=== PATIENT | female | born 1935 | race Caucasian/White ===

== ENCOUNTER 2016-07-03 10:03 | Inpatient (IN) | payer OTHER ==
[~2016-07-03] VITALS: Ht 154.9 cm; Wt 50.8 kg
--- NOTE | ~2016-07-03 | EKG ---
[place] [address] [facility] [place] [address] ELECTROCARDIOGRAM REPORT Name: EULALIA WILDER Room #: REG [facility]#: [id number] Admission: 07/03/16 Attend Phys: Discharge: Date of : 31 Report #: [id number] THIS REPORT FOR: //name// [facility] ED Test Date: 2016-07-03 Test Time: 10:04:01 Pat Name: EULALIA WILDER Department: Room: Gender: F Maintenance Services Dispatcher: KWABENA : 1935 Requested By: Doreen May Order Number: [id number] MD: Ubaldo Austin Measurements Intervals [place] Rate: 49 P: 48 TN: 161 QRS: 78 QRSD: 111 T: 37 QT: 487 QTc: 440 Interpretive Statements Sinus bradycardia Borderline low voltage, extremity leads No previous ECG available for comparison Electronically Signed On 07-03-2016 11:13:44 TEST FIXTURE DESIGNER by Ubaldo Asutin [email or web address] <ELECTRONICALLY SIGNED> By: Ubaldo Austin MD 07/03/16 1113 1004 1004 Ubaldo Austin MD /TRA
--- NOTE | ~2016-07-03 | S ---
[facility] [place] [address] SURGICAL PATH RPT PROCEDURE Name: SUMMER JONES Room #: 434-P DIS IN M.R.#: [id number] Admission: 07/03/16 Date of : 31 Discharge: 07/06/16 Report #: [id number] Path Case #: [id number] PATHOLOGY REPORT COLLECTION DATE: 07/05/2016 RECEIVED DATE: 07/05/2016 SUBMITTING PHYS: Dr. Pauline Carcamo OTHER PHYS: Dr. Herbie Allen SPECIMEN(S) RECEIVED: A.Bx gastritis B.Bx polyp pyloric channel C.Bx ileum D.Bx ascending colon E.Bx ulcerated sigmoid from 16 cm - 23 cm * * * * * * * * * * * * FINAL DIAGNOSIS: A. Gastric biopsy "biopsy gastritis": - Mild chronic reactive gastropathy. - The immunoperoxidase stain for Helicobacter pylori is negative. B. Small intestinal mucosa "biopsy polyp pyloric channel": - Peptic duodenitis with reactive changes. - There is no evidence of adenomatous change, high grade dysplasia or malignancy. C. Small intestinal mucosa "biopsy ileum": - No diagnostic changes. - There is no evidence of acute cryptitis, granuloma, adenomatous change or malignancy. D. Colonic mucosa "biopsy ascending colon": - No diagnostic changes. - There is no evidence of acute cryptitis, granulomas, adenomatous change or malignancy. E. Colonic mucosa "biopsy ulcerated sigmoid from 16 cm to 23 cm":- Acute mucosal ulceration with necrotic acute inflammatory exudate with small miniature glands surrounded by hyalinized stroma consistent with ischemic colitis with ulceration. COMMENT: Part B and E of this case is also reviewed by Dr. Damaris Guerin. (SHA:all; d/t: 07/06/2016) PATHOLOGIST: Jhon Flood M.D. REPORT ELECTRONICALLY SIGNED BY: Jhon Flood M.D. DATE/TIME: 07/06/2016 14:[address] [address] SURGICAL PATH RPT PROCEDURE Name: SUMMER JONES Room #: 434-P [place] [facility] [facility].#: [id number] Admission: 07/03/16 Date of : 31 Discharge: 07/06/16 Report #: [id number] Path Case #: [id number] * * * * * * * * * * * * GROSS PATHOLOGY: A. Received in formalin labeled "Robert, Summer and bx gastritis," is a segment of hendricks soft tissue measuring 0.5 cm in maximum dimension. The specimen is submitted entirely in cassette A1. B. Received in formalin labeled "Ojnes, Summer and bx polyp pyloric channel," is a segment of hendricks soft tissue measuring 0.5 cm in maximum dimension. The specimen is submitted entirely in cassette B1. C. Received in formalin labeled "Robert, Summer and bx ileum," are 3 segments of hendricks soft tissue measuring 0.8 x 0.2 x 0.2 cm in aggregate dimensions and ranging from 0.2 to 0.3 cm in maximum dimension. The specimen is submitted entirely in cassette C1. D. Received in formalin labeled "Kristie Jones's ascending colon," are 2 segments of hendricks soft tissue measuring 0.8 x 0.2 x 0.2 cm in aggregate dimensions and measuring 0.3 and 0.5 cm in maximum dimension. The specimen is submitted entirely in cassette D1. E. Received in formalin labeled "Summer Jones and bx ulcerated sigmoid 16-23 cm," are 5 segments of hendricks soft tissue measuring 1.8 x 0.3 x 0.2 cm in aggregate dimensions and ranging from 0.2 to 0.5 cm in maximum dimension. The specimen is submitted entirely in cassette E1. (TTL; 07/05/2016) CLINICAL HISTORY: Heme positive stools, diarrhea INITIAL CPT CODE(S): A; 23798, 98117 B; 87807 C; 35387 D; 87952 E; 94912 Professional services performed by [employer] at [address], [place] [address] Technical services performed by [employer] at [address] [place] [address], [facility] [address] [address]. [facility] [place] [address] PHONE: [phone] [address] SURGICAL PATH RPT PROCEDURE Name: SUMMER JONES Room #: 434-P DIS IN M.R.#: [id number] Admission: 07/03/16 Date of : 31 Discharge: 07/06/16 Report #: [id number] Path Case #: [id number] DIRECTOR: Pierce Swartz M.D. * * * END OF REPORT * * *
--- NOTE | ~2016-07-03 | HC ---
[facility] [place] [address] CONSULTATION Name: EULALIA WILDER Room #: 434-P ADM IN M.R.#: [id number] Admission: 07/03/16 Attend Phys: Herbie Mills DO Discharge: Date of : 31 Report #: [id number] THIS REPORT FOR: //name// CC: Gera Allen MD [facility] Herbie Lu MD [facility] DATE OF SERVICE: 07/04/2016 PATIENT OF: Dr. Herbie Mills, Dr. Cindy Gibson, and Dr. Gera Allen. CHIEF COMPLAINT: This is a very pleasant 80-year-old white female who apparently had a syncopal episode while having a bowel movement at home and fainted and fell off the toilet striking her left ribs. Her ribs are tender and hurt with deep inspiration or any kind of pressure. The etiology of the syncopal episode may have been vasovagal, but that is not entirely clear at this time. When the ambulance arrived, the patient was sitting up and was hypotensive with a pressure in the 70s. She was brought to the hospital for further evaluation. She was found to have heme positive stools. She had been having diarrhea also and had copious diarrhea in the emergency room. She has a history of GI bleeding in the past and known diverticulosis of the right and left colon. PAST MEDICAL HISTORY: Significant for gastroesophageal reflux, hyperlipidemia, hypertension, a large hiatal hernia, she has coronary artery disease with stents, she has a history of adenomatous colon polyps, diverticulosis of the right and left colon, she has a history of fatty liver, a bilobed cyst of the left ovary that has been enlarging over the past few CT scans that have been taken, she has a history of degenerative joint disease and a Schatzki ring. PAST SURGICAL HISTORY: Significant for cataract surgery. She has tonsillectomy and adenoidectomy, dilatation and curettage, and cholecystectomy. ALLERGIES: ROFECOXIB, BIAXIN, and TAPE. MEDICATIONS: prior to admission included Toprol-XL, Norvasc, Altace, aspirin, omeprazole, Livalo, Centrum silver, fish oil, calcium and vitamin D3 and acetaminophen. SOCIAL HISTORY: She does not smoke. She does not drink alcohol. FAMILY HISTORY: Negative for colon polyps, colon cancer, Crohn's disease, and [facility] [address] [place] [address] CONSULTATION Name: EULALIA WILDER Room #: 434-P [facility] IN [facility]#: [id number] Admission: 07/03/16 Attend Phys: Herbie Mills DO Discharge: Date of : 31 Report #: [id number] ulcerative colitis. REVIEW OF SYSTEMS: She denies any dysphagia at this time, although she had a history of dysphagia in the past. She has no odynophagia. She does have some gastroesophageal reflux symptoms and history of a large hiatal hernia. Her stool is heme positive. She has had diarrhea and elevated alkaline phosphatase of uncertain etiology with a normal GGTP. She had the syncopal episode and hypotension and left rib pain after falling on her left side. She has a history of a Schatzki ring. She had a colonic adenoma removed in 2013, by Dr. Artis. She has right and left side diverticulosis and history of a fatty liver and she also has history of a bilobed cyst in the left ovary and the etiology of this is not clear. Follow up is indicated. She denies any history of peptic ulcer disease, nausea, vomiting, change in appetite, change in weight, jaundice, hepatitis, or pancreatitis. She denies any hematemesis, hematochezia, or melena. She denies any abdominal pain. PHYSICAL EXAMINATION: GENERAL: Reveals a well-developed, well-nourished 80-year-old female, in no apparent distress, at the time of the examination is awake, alert, oriented x4 and cooperative and very pleasant to converse with. HEENT: She is normocephalic and atraumatic and anicteric. HEART: Rate and rhythm are regular with a normal S1 and S2. LUNGS: Clear bilaterally, but is painful for her to take a deep breath on the left side. ABDOMEN: Soft. Bowel sounds are present in all 4 quadrants. There is no palpable organomegaly or mass. There is no tenderness, rebound, or guarding. EXTREMITIES: Warm and dry. No peripheral cyanosis, clubbing, or edema. I see no bruising in the area of the right ribs, but she is very tender on the 9th rib laterally, almost in the mid axillary line. IMPRESSION: 1. Heme positive stools in a patient with diarrhea and history of adenomatous colon polyp in 2013, diverticulosis of the right and left colon. 2. Syncope. 3. Left ovarian mass that needs to be followed up. 4. Hypertension. 5. Episode of hypotension upon arrival in the ER. 6. Gastroesophageal reflux. 7. Hyperlipidemia. 8. Hiatal hernia. 9. Coronary artery disease with stents placed. 10. History of adenomatous colon polyps. 11. History of fatty liver. 12. Bilobed cyst of left ovary. 13. Degenerative joint disease. 14. History of Schatzki ring. [facility] [place] [address] CONSULTATION Name: EULALIA WILDER Bruce Room #: 434-P ADM IN M.R.#: [id number] Admission: 07/03/16 Attend Phys: Herbie Mills DO Discharge: Date of : 33 Report #: [id number] 15. Elevated alkaline phosphatase with a normal GGTP, uncertain etiology. RECOMMENDATIONS: To proceed with EGD and colonoscopy tomorrow. The patient is agreeable with this plan and we will prep for the colonoscopy tomorrow. I would also recommend that she have a pelvic ultrasound to follow up on this left ovarian cyst that seems to be enlarging. We will check an iron, TIBC and ferritin and check stools for culture and sensitivity, ova and parasites, C. diff by PCR and WBCs. Thank you very much once again for allowing me to participate in her care, Dr. Mills, Dr. Gibson, and Dr. Allen. <ELECTRONICALLY SIGNED> By: Pauline Carcamo DO 07/05/163 1114 1349 Pauline Carcamo DO /nt
--- NOTE | ~2016-07-03 | P ---
[facility] [place] [address] PROCEDURE REPORT Name: EULALIA WILDER Room #: 434-P ADM IN M.R.#: [id number] Admission: 07/03/16 Attend Phys: Herbie Mills DO Discharge: Date of : 31 Report #: [id number] THIS REPORT FOR: //name// CC: DEQUAN Muhammad Woodrow [employer] DATE OF SERVICE: 07/05/2016 DATE OF SERVICE: 07/05/2016 INDICATION FOR PROCEDURE: Evaluate heme positive stools, diarrhea. The patient had episode of syncope with hypotension prior to admission. Informed consent for this procedure was obtained prior to the administration of any medication. The risks of the procedure which include bleeding, perforation, infection, complications of sedation and the possibility I could miss something have been explained to the patient and she has indicated her consent by signing. Propofol was slowly titrated before and during this procedure and the colonoscopy that followed it. The [email or web address] upper videoscope was introduced through the upper esophageal sphincter and advanced under direct visualization to the second portion of the duodenum. Findings are noted on withdrawal of the scope. The duodenal mucosa appears normal throughout its entirety. Pylorus in the pyloric channel, there is a single 4 mm polyp. Biopsies were obtained x 2 from this polyp, ____ without the gastric motility. Good hemostasis was noted after those biopsies, but that pyloric channel polyp was not completely removed. Antrum, erythematous mucosa. Biopsies obtained from the antrum for histopathology. Body erythematous mucosa. Biopsies obtained from the body. Body of the biopsy x 1. Good hemostasis was noted after those biopsies. Retroflex view reveals a very large hiatal hernia. The fundus and the cardia appeared normal. The scope was withdrawn to the esophagus. The Z-line is appropriately located at the top of the gastric folds and appears normal. The esophageal mucosa appears normal throughout its entirety. Scope was withdrawn. The patient was turned for colonoscopy. IMPRESSION: 1. Diffuse gastritis, biopsies pending for histopathology. 2. Pyloric channel polyp, biopsied. 3. Normal duodenum. 4. Tortuous esophagus with normal mucosa. Recommendations are for her to be on proton pump inhibitors as you have done. We will await the biopsy results. [address] [address] PROCEDURE REPORT Name: EULALIA WILDER Room #: 434-P [facility] IN M.R.#: [id number] Admission: 07/03/16 Attend Phys: Herbie Mills DO Discharge: Date of : 33 Report #: [id number] Thank you very much once again for allowing me to participate in her care and signed Pauline Carcamo M.D. PROCEDURE #2: Colonoscopy with biopsy. INDICATION FOR PROCEDURE: Heme positive stool, diarrhea, episode of syncope, and hypotension, uncertain etiology. DESCRIPTION OF PROCEDURE: Informed consent for this procedure was obtained prior to the administration of any medication. The risks of the procedure which include bleeding, perforation, infection, complications of sedation and the possibility I could miss something have been explained to the patient and she has indicated her consent by signing. Propofol was slowly titrated before and during this procedure for patient comfort by the anesthesia service. The Fujinon colonoscope was introduced through the anal sphincter and advanced under direct visualization to the terminal ileum. Findings are noted on withdrawal of the scope. The terminal ileal mucosa appears normal. Biopsies were obtained x 2 to evaluate for possible microscopic causes of diarrhea. Cecum, normal mucosa. Ascending colon, multiple uncomplicated diverticula are noted in the ascending colon. Biopsies were obtained x 2 for histopathology to evaluate for possible microscopic causes of diarrhea. Hepatic flexure, normal mucosa. Transverse colon, normal mucosa. Splenic flexure, normal mucosa. Descending colon, in the descending colon, starting right at the splenic flexure, the mucosa becomes erythematous and edematous. There is ulcerated segment of colon in the sigmoid from 16-23 cm that is erythematous and edematous with multiple small white based shallow ulcerations. Biopsies were obtained throughout this area x 4 for histopathology. It is suggestive of an ischemic episode, rectum normal mucosa. Retroflex view did not reveal any further abnormalities. Digital rectal exam was normal. The scope was withdrawn. The patient went to the recovery area in stable condition. She tolerated the procedure well. IMPRESSION: 1. Erythema, edema and ulceration of the left colon specifically from 16-23 cm, there is an ulcerated colitis segment that might be consistent with ischemic colitis. 2. Multiple biopsies taken from the ileum and the ascending colon to evaluate for microscopic causes of her diarrhea. RECOMMENDATIONS: My recommendations for her to start on Cipro 250 mg 1 p.o. b.i.d. and Flagyl 250 mg 1 p.o. q.i.d. for 10 days both. We will await the path reports. Start her on a soft diet. She could be discharged today from my standpoint. [facility] [address] [place] [address] PROCEDURE REPORT Name: EULALIA WILDER Room #: 434-P ADM IN M.R.#: [id number] Admission: 07/03/16 Attend Phys: Herbie Mills DO Discharge: Date of : 31 Report #: [id number] Thank you very much once again for allowing me to participate in her care, Dr. Lamar. <ELECTRONICALLY SIGNED> By: Pauline Carcamo DO 07/05/16 2025 1120 1344 Pauline Carcamo DO /nt
[~2016-07-03 10:03] MED LIST: ALTACE10 MG PO; CALCIUM 500 +1 EAC5 PO; CARAFATE 1 GM TA1 G1 PO; CENTRUM SILVER1 EAC4 PO; CIPRO500 MG PO; CO-ENZYME Q-1010 MG PO; ERYTHROMYCIN E3.5 G3; FISH OIL 1,001000 M2 PO; LIVALO2 MG PO; METOPROLOL SUCC25 M1 PO; NORVASC5 MG PO; OMEPRAZOLE40 MG PO; VITAMIN D-32000 UNIT PO
[2016-07-03 10:04] VITALS: BP 133/49
[2016-07-03 10:21] LABS: ABSOLUTE NEUTROPHILS 5.6 thou/uL (1.4-8.2); BASOPHILS 0.4 % (0.0-2.0); EOSINOPHILS 0.9 % (0.0-3.0); HEMATOCRIT 46.4 % (37.0-47.0); HEMOGLOBIN 15.5 gm/dL (12.0-15.0); LYMPHOCYTES 30.5 % (24.0-44.0); MCH 32.6 pg (26.0-34.0); MCHC 33.3 % (28.0-37.0); MCV 97.8 fL (80.0-100.0); PLATELET COUNT 201 thou/uL (150-400); POLYS 64.2 % (36.0-66.0); RBC 4.74 mil/uL (4.20-5.00); RDW 13.2 % (10.5-14.5); WBC 8.8 thou/uL (4.0-11.0)
[2016-07-03 10:22] LABS: MANUAL DIFF NO
[2016-07-03 10:31] LABS: ANION GAP 9 mmol/L (7-16); BUN 19 mg/dL (7-18); CALCIUM 9.3 mg/dL (8.5-10.1); CHLORIDE 103 mmol/L (98-107); CO2 27 mmol/L (21-32); CREATININE 0.9 mg/dL (0.6-1.3); GLUCOSE 157 mg/dL (70-99); POTASSIUM 4.5 mmol/L (3.5-5.1); SODIUM 139 mmol/L (136-145)
[2016-07-03] MEDS ORDERED: PAIN RELIEF650 MG PO (10:34)
[2016-07-03] MEDS ORDERED: ASPIR 8181 MG PO (10:35)
[2016-07-03 10:41] LABS: ALBUMIN 3.6 g/dL (3.4-5.0); ALKALINE PHOSPHATASE 288 U/L (46-116); SGOT 37 U/L (15-37); SGPT 31 U/L (30-65); TOTAL PROTEIN 6.1 g/dL (6.4-8.2); TROPONIN-I < 0.04 ng/mL (<0.04-0.07)
[2016-07-03 12:48] LABS: URINE BILIRUBIN 1+ (Negative); URINE BLOOD 1+ (Negative); URINE COLOR YELLOW; URINE GLUCOSE-RANDOM* NEGATIVE (Negative); URINE KETONES TRACE (Negative); URINE LEUKOCYTES-REFLEX NEGATIVE (Negative); URINE PROTEIN (DIPSTICK) NEGATIVE (Negative); URINE SPECIFIC GRAVITY 1.025 (1.003-1.035)
[2016-07-03 12:49] LABS: ICTOTEST (BILI CONFIRMATORY) Positive (Negative)
[2016-07-03 13:01] LABS: CRYSTALS None Seen /LPF (None Seen); HYALINE CASTS 0-3 Few /LPF (None Seen); SQUAMOUS 0-3 Few /LPF (0-3); URINE RBC 3-10 Few /HPF (0-2); URINE WBC-REFLEX None Seen /HPF (0-5)
[2016-07-03 15:01] VITALS: BP 128/39
[2016-07-03 16:00] VITALS: BP 153/58
[2016-07-03 19:20] VITALS: BP 139/66
[2016-07-03 23:16] VITALS: BP 15/88; BP 151/88
[2016-07-04 04:40] VITALS: BP 104/47
[2016-07-04 05:26] LABS: ABSOLUTE NEUTROPHILS 4.2 thou/uL (1.4-8.2); BASOPHILS 0.3 % (0.0-2.0); EOSINOPHILS 0.1 % (0.0-3.0); HEMATOCRIT 37.1 % (37.0-47.0); MCH 33.2 pg (26.0-34.0); MCHC 34.1 % (28.0-37.0); MCV 97.5 fL (80.0-100.0); MONOCYTES 7.1 % (1.0-8.0); PLATELET COUNT 148 thou/uL (150-400); POLYS 74.5 % (36.0-66.0); RBC 3.81 mil/uL (4.20-5.00); RDW 12.9 % (10.5-14.5); WBC 5.6 thou/uL (4.0-11.0)
[2016-07-04 05:39] LABS: HEMOGLOBIN 12.6 gm/dL (12.0-15.0); MANUAL DIFF NO
[2016-07-04 06:04] LABS: CALCIUM 8.1 mg/dL (8.5-10.1); CREATININE 0.8 mg/dL (0.6-1.3); POTASSIUM 4.4 mmol/L (3.5-5.1)
[2016-07-04 07:35] VITALS: BP 107/50
[2016-07-04 15:58] VITALS: BP 110/52
[2016-07-04 20:39] VITALS: BP 122/66
[2016-07-05] VITALS (7 sets, daily range): BP systolic 122–159; BP diastolic 45–62
[2016-07-05 04:49] LABS: PROTIME 10.6 Seconds (9.3-11.4)
[2016-07-05 10:08] LABS: % SATURATION 16 % (15-55); IRON 29 ug/dL (27-139); TIBC 183 ug/dL (250-450); UIBC 154 ug/dL (118-369)
[2016-07-06 02:18] VITALS: BP 140/54
[2016-07-06 05:40] LABS: BASOPHILS 0.6 % (0.0-2.0); EOSINOPHILS 1.8 % (0.0-3.0); HEMATOCRIT 40.5 % (37.0-47.0); HEMOGLOBIN 13.4 gm/dL (12.0-15.0); MCH 32.6 pg (26.0-34.0); MCV 98.7 fL (80.0-100.0); MONOCYTES 6.9 % (1.0-8.0); POLYS 63.7 % (36.0-66.0); WBC 6.3 thou/uL (4.0-11.0)
[2016-07-06 05:51] LABS: CALCIUM 9.3 mg/dL (8.5-10.1); CREATININE 0.6 mg/dL (0.6-1.3); POTASSIUM 3.4 mmol/L (3.5-5.1)
[2016-07-06 06:01] LABS: MANUAL DIFF NO
[2016-07-06 06:36] LABS: PLATELET COUNT 152 thou/uL (150-400)
[2016-07-06 08:00] VITALS: BP 157/61
[2016-07-06] MEDS ORDERED: PROTONIX40 M1 PO (09:42)
[2016-07-06] MEDS ORDERED: OXYCODONE HCL 55 MG PO (09:42)
[2016-07-06 12:00] VITALS: BP 123/59; BP 124/55; BP 143/51
[2016-07-06 13:01] VITALS: BP 143/51
[2016-07-06 14:01] VITALS: BP 143/51
== END 2016-07-06 14:04 | disposition home or self-care (01) | DRG 392 ==
LOC: ER 10:03 → EROBS 14:07 → 4S 14:07
PROVIDERS: Emergency Medicine; Family Medicine; Internal Medicine Gastroenterology
PROC: 0DBK8ZX Excision of Ascending Colon, Via Natural or Artificial Opening Endoscopic, Diagnostic (ICD-10-PCS; principal; 2016-07-05)
PROC: 0DBB8ZX Excision of Ileum, Via Natural or Artificial Opening Endoscopic, Diagnostic (ICD-10-PCS; principal; 2016-07-05)
PROC: 0DB68ZX Excision of Stomach, Via Natural or Artificial Opening Endoscopic, Diagnostic (ICD-10-PCS; principal; 2016-07-05)
PROC: 0DBN8ZX Excision of Sigmoid Colon, Via Natural or Artificial Opening Endoscopic, Diagnostic (ICD-10-PCS; principal; 2016-07-05)
PROC: 0DB78ZX Excision of Stomach, Pylorus, Via Natural or Artificial Opening Endoscopic, Diagnostic (ICD-10-PCS; principal; 2016-07-05)
DX: K29.70 Gastritis, unspecified, without bleeding (principal); R55 Syncope and collapse; R19.7 Diarrhea, unspecified; I95.9 Hypotension, unspecified; I25.10 Atherosclerotic heart disease of native coronary artery without angina pectoris; E78.00 Pure hypercholesterolemia, unspecified; K21.9 Gastro-esophageal reflux disease without esophagitis; I10 Essential (primary) hypertension; E86.0 Dehydration; E78.5 Hyperlipidemia, unspecified; K57.30 Diverticulosis of large intestine without perforation or abscess without bleeding; M19.90 Unspecified osteoarthritis, unspecified site; R19.5 Other fecal abnormalities; N83.9 Noninflammatory disorder of ovary, fallopian tube and broad ligament, unspecified; K44.9 Diaphragmatic hernia without obstruction or gangrene; N83.202 Unspecified ovarian cyst, left side; K22.2 Esophageal obstruction; T14.8 Other injury of unspecified body region; W19.XXXA Unspecified fall, initial encounter; Z95.5 Presence of coronary angioplasty implant and graft; Z88.8 Allergy status to other drugs, medicaments and biological substances; Z98.49 Cataract extraction status, unspecified eye; Z79.82 Long term (current) use of aspirin; Z79.899 Other long term (current) drug therapy; Z86.010 Personal history of colon polyps; Z90.49 Acquired absence of other specified parts of digestive tract
CPT/HCPCS: 10100; 10102; 62110; 62900; 70005

== ENCOUNTER → 2016-09-04 | Outpatient (CLI) | payer OTHER ==
[~2016-09-04] MED LIST changes: +ASPIR 8181 MG PO; +OXYCODONE HCL 55 MG PO; +PAIN RELIEF650 MG PO; +PROTONIX40 M1 PO
== END ==
LOC: RAD 01:09
DX: R92.8 Other abnormal and inconclusive findings on diagnostic imaging of breast (principal)

== ENCOUNTER → 2016-12-06 | Outpatient (CLI) | payer OTHER | LOC: NUC 09:11 | DX: R10.13 Epigastric pain (principal); R14.0 Abdominal distension (gaseous) ==

== ENCOUNTER → 2017-05-16 | Outpatient (CLI) | payer OTHER | LOC: RAD 01:25 | DX: Z12.31 Encounter for screening mammogram for malignant neoplasm of breast (principal) ==